=== PATIENT | male | born 1985 | race Two or more races ===

== ENCOUNTER 2023-10-12 19:31 | Inpatient (IN) | payer MEDICAID, OTHER ==
[~2023-10-12] VITALS: Ht 170.2 cm; Wt 62.6 kg
[2023-10-12] MEDS ORDERED: METOCLOPRAMIDE HCL 10 MG/2 ML VIAL ONE (21:10)
[2023-10-12] MEDS ORDERED: KETOROLAC TROMETHAMINE 15 MG/ML VIAL ONE (21:10)
[2023-10-12] MEDS: METOCLOPRAMIDE HCL 10 MG/2 ML VIAL IV ONE (21:16)
[2023-10-12] MEDS: KETOROLAC TROMETHAMINE 15 MG/ML VIAL IV ONE (21:17)
[2023-10-12 21:37] LABS: BASOPHILS # (AUTO) 0.1 K/uL (0.0-0.2); BASOPHILS % (AUTO) 0.9 % (0.0-2.0); EOSINOPHILS # (AUTO) 0.1 K/uL (0.0-0.7); EOSINOPHILS % (AUTO) 1.2 % (0.0-6.0); HEMATOCRIT 28 % (39-51); HEMOGLOBIN 8.8 g/dL (13.5-17.5); LYMPHOCYTES # (AUTO) 0.9 K/uL (0.8-4.8); LYMPHOCYTES % (AUTO) 8.6 % (20.0-44.0); MEAN CORPUSCULAR HEMOGLOBIN 27 PG (26.0-33.0); MEAN CORPUSCULAR HGB CONC 31 g/dl (31.0-36.0); MEAN CORPUSCULAR VOLUME 86 fL (80-96); MONOCYTES # (AUTO) 0.6 K/uL (0.1-1.30); MONOCYTES % (AUTO) 5.6 % (2.0-12.0); NEUTROPHILS # (AUTO) 9.1 K/uL (1.8-8.9); NEUTROPHILS % (AUTO) 83.7 % (43.0-81.0); PLATELET COUNT (AUTO) 353 K/uL (150-450); RED BLOOD CELL COUNT(AUTO) 3.27 MIL/uL (4.5-6.0); RED CELL DISTRIBUTION WIDTH 16.8 % (11.5-15.0); WHITE BLOOD COUNT (AUTO) 10.9 K/uL (4.3-11.0)
[2023-10-12 21:58] LABS: ALBUMIN 2.3 g/dL (3.4-5.0); BILIRUBIN,DIRECT 0.1 mg/dL (0.0-0.2); BILIRUBIN,TOTAL 0.5 mg/dL (0.2-1.0); CALCIUM, SERUM 8.5 mg/dL (8.5-10.1); TOTAL PROTEIN, SERUM 7.7 g/dL (6.4-8.2)
[2023-10-12 22:02] LABS: CREATININE 11.8 mg/dL (0.6-1.3); POTASSIUM 6.3 mmol/L (3.5-5.1)
[2023-10-12] MEDS: ALBUTEROL FS 2.5 MG/3 ML VIAL.NEB NEB ONE (22:52)
[2023-10-12] MEDS: INSULIN REGULAR, HUMAN 100 UNIT/ML 10 ML VIAL IV STA (22:54)
[2023-10-12] MEDS: SODIUM POLYSTYRENE SULFONATE 15 G/60 ML BOTTLE PO ONE (22:55)
[2023-10-12 23:04] VITALS: O2SAT 98
[2023-10-12] MEDS: DEXTROSE 50%-WATER 50 ML DISP.SYRIN IV ONE (23:09)
[2023-10-12 23:19] VITALS: O2SAT 98
[2023-10-12] MEDS ORDERED: ACETAMINOPHEN 325 MG TABLET PO PRN (23:30)
[2023-10-12] MEDS ORDERED: ONDANSETRON HCL/PF 4 MG/2 ML VIAL IVP PRN (23:30)
[2023-10-12] MEDS ORDERED: DEXTROSE 50%-WATER 50 ML DISP.SYRIN IV PRN (23:30)
[2023-10-12] MEDS: HALOPERIDOL LACTATE INJ 5 MG/ML VIAL IM ONE (23:33)
[2023-10-13] VITALS (41 sets, daily range): BP systolic 121–162; BP diastolic 83–138; TEMP 97.3–98.4; O2SAT 90–100
[2023-10-13 00:05] LABS: CALCIUM, SERUM 8.3 mg/dL (8.5-10.1); POTASSIUM 5.8 mmol/L (3.5-5.1)
[2023-10-13 00:09] LABS: CREATININE 12.5 mg/dL (0.6-1.3)
[2023-10-13 06:40] LABS: BASOPHILS # (AUTO) 0.1 K/uL (0.0-0.2); BASOPHILS % (AUTO) 1.3 % (0.0-2.0); EOSINOPHILS # (AUTO) 0.3 K/uL (0.0-0.7); EOSINOPHILS % (AUTO) 2.8 % (0.0-6.0); HEMATOCRIT 29 % (39-51); HEMOGLOBIN 9.1 g/dL (13.5-17.5); LYMPHOCYTES # (AUTO) 1.7 K/uL (0.8-4.8); LYMPHOCYTES % (AUTO) 16.6 % (20.0-44.0); MEAN CORPUSCULAR HEMOGLOBIN 27 PG (26.0-33.0); MEAN CORPUSCULAR HGB CONC 32 g/dl (31.0-36.0); MEAN CORPUSCULAR VOLUME 86 fL (80-96); MONOCYTES # (AUTO) 0.7 K/uL (0.1-1.30); MONOCYTES % (AUTO) 7.1 % (2.0-12.0); NEUTROPHILS # (AUTO) 7.4 K/uL (1.8-8.9); NEUTROPHILS % (AUTO) 72.2 % (43.0-81.0); PLATELET COUNT (AUTO) 372 K/uL (150-450); RED BLOOD CELL COUNT(AUTO) 3.33 MIL/uL (4.5-6.0); RED CELL DISTRIBUTION WIDTH 17.3 % (11.5-15.0); WHITE BLOOD COUNT (AUTO) 10.2 K/uL (4.3-11.0)
[2023-10-13 07:15] LABS: CALCIUM, SERUM 8.7 mg/dL (8.5-10.1); MAGNESIUM 2.6 mg/dL (1.8-2.4); POTASSIUM 5.8 mmol/L (3.5-5.1)
[2023-10-13 07:20] LABS: CREATININE 12.7 mg/dL (0.6-1.3)
[2023-10-13] MEDS: BLOOD SUGAR DIAGNOSTIC 1 EACH STRIP IN SCH (07:30)
[2023-10-13] MEDS: OLANZAPINE 10 MG VIAL IM ONE ×2 (09:12→12:25)
[2023-10-13] MEDS: INSULIN REGULAR, HUMAN 100 UNIT/ML 3 ML VIAL SQ PRN (09:18)
[2023-10-13] MEDS ORDERED: Z GUARD REMEDY 4 OZ OINT TP PRN (10:00)
[2023-10-13] MEDS: Z GUARD REMEDY 4 OZ OINT TP SCH (10:00)
[2023-10-13] MEDS: COD LIVER OIL/ZINC OXIDE 120 GM TUBE TP SCH (13:00)
[2023-10-13] MEDS: ARIPIPRAZOLE 5 MG TABLET PO SCH (14:40)
[2023-10-13] MEDS ORDERED: INSU100I34 SQ (15:19)
[2023-10-13] MEDS ORDERED: PRED5DRO17 LEFTEYE (15:19)
[2023-10-13] MEDS ORDERED: MOXI3DRO13 LEFTEYE (15:19)
[2023-10-13] MEDS ORDERED: ZINC57OI3 TP (15:19)
[2023-10-13] MEDS ORDERED: ELUX75TA PO (15:19)
[2023-10-13] MEDS ORDERED: ARIP20TA4 PO (15:19)
[2023-10-13] MEDS ORDERED: INSU100I26 SQ (15:19)
[2023-10-13] MEDS ORDERED: AMYL1CAP56 PO (15:19)
[2023-10-13] MEDS: OLANZAPINE 10 MG VIAL IM PRN (15:59)
[2023-10-13] MEDS: LORAZEPAM INJ 2 MG/ML VIAL IV PRN (17:10)
[2023-10-13] MEDS ORDERED: BENZTROPINE MESYLATE (2MG/2ML) 2 MG/2 ML AMPUL IM PRN (19:00)
[2023-10-13] MEDS ORDERED: HALOPERIDOL DECANOATE IM 100 MG/ML AMPUL IM PRN (19:00)
[2023-10-13] MEDS ORDERED: DIAZEPAM 5 MG/ML 2 ML DISP.SYRIN IM PRN (19:00)
[2023-10-13] MEDS: HALOPERIDOL LACTATE INJ 5 MG/ML VIAL IM PRN (22:09)
[2023-10-14] VITALS (47 sets, daily range): BP systolic 124–168; BP diastolic 84–123; TEMP 97.6–98.7; O2SAT 89–100
[2023-10-14 05:09] LABS: BASOPHILS # (AUTO) 0.1 K/uL (0.0-0.2); BASOPHILS % (AUTO) 1.2 % (0.0-2.0); EOSINOPHILS # (AUTO) 0.4 K/uL (0.0-0.7); EOSINOPHILS % (AUTO) 3.4 % (0.0-6.0); HEMATOCRIT 27 % (39-51); HEMOGLOBIN 8.5 g/dL (13.5-17.5); LYMPHOCYTES # (AUTO) 1.7 K/uL (0.8-4.8); LYMPHOCYTES % (AUTO) 14.8 % (20.0-44.0); MEAN CORPUSCULAR HEMOGLOBIN 27 PG (26.0-33.0); MEAN CORPUSCULAR HGB CONC 32 g/dl (31.0-36.0); MEAN CORPUSCULAR VOLUME 86 fL (80-96); MONOCYTES # (AUTO) 0.9 K/uL (0.1-1.30); NEUTROPHILS # (AUTO) 8.2 K/uL (1.8-8.9); NEUTROPHILS % (AUTO) 72.6 % (43.0-81.0); PLATELET COUNT (AUTO) 347 K/uL (150-450); RED CELL DISTRIBUTION WIDTH 16.5 % (11.5-15.0); WHITE BLOOD COUNT (AUTO) 11.3 K/uL (4.3-11.0)
[2023-10-14 05:31] LABS: CALCIUM, SERUM 7.7 mg/dL (8.5-10.1); POTASSIUM 5.3 mmol/L (3.5-5.1)
[2023-10-14 05:32] LABS: CREATININE 10.2 mg/dL (0.6-1.3)
[2023-10-14] MEDS: SEVELAMER CARBONATE 800 MG TABLET PO SCH (08:37)
[2023-10-14] MEDS: LORAZEPAM 1 MG TABLET PO SCH (13:51)
[2023-10-14] MEDS: ARIPIPRAZOLE 5 MG TABLET PO SCH (16:39)
[2023-10-14] MEDS ORDERED: MOXI3DRO13 OP (20:47)
[2023-10-14] MEDS: LORAZEPAM INJ 2 MG/ML VIAL IV PRN (22:08)
[2023-10-15] VITALS: BP 146/87; TEMP 98
[2023-10-15 04:00] VITALS: BP 147/94; TEMP 97.2; O2SAT 98
[2023-10-15 06:57] LABS: BASOPHILS # (AUTO) 0.1 K/uL (0.0-0.2); BASOPHILS % (AUTO) 0.7 % (0.0-2.0); EOSINOPHILS # (AUTO) 0.2 K/uL (0.0-0.7); HEMATOCRIT 25 % (39-51); LYMPHOCYTES # (AUTO) 1.6 K/uL (0.8-4.8); LYMPHOCYTES % (AUTO) 10.9 % (20.0-44.0); MEAN CORPUSCULAR HEMOGLOBIN 27 PG (26.0-33.0); MEAN CORPUSCULAR HGB CONC 32 g/dl (31.0-36.0); MEAN CORPUSCULAR VOLUME 85 fL (80-96); MONOCYTES % (AUTO) 6.7 % (2.0-12.0); NEUTROPHILS # (AUTO) 11.9 K/uL (1.8-8.9); NEUTROPHILS % (AUTO) 80.7 % (43.0-81.0); PLATELET COUNT (AUTO) 328 K/uL (150-450); RED BLOOD CELL COUNT(AUTO) 2.95 MIL/uL (4.5-6.0); RED CELL DISTRIBUTION WIDTH 16.1 % (11.5-15.0); WHITE BLOOD COUNT (AUTO) 14.8 K/uL (4.3-11.0)
[2023-10-15 07:12] LABS: CALCIUM, SERUM 7.6 mg/dL (8.5-10.1); POTASSIUM 5.4 mmol/L (3.5-5.1)
[2023-10-15 07:21] LABS: CREATININE 9.7 mg/dL (0.6-1.3)
[2023-10-15 08:00] VITALS: BP 143/92; TEMP 99; O2SAT 100
[2023-10-15 16:00] VITALS: BP 137/105; TEMP 98.1; O2SAT 100
[2023-10-15 20:00] VITALS: BP 129/111; TEMP 97.9; O2SAT 100
[2023-10-16 04:00] VITALS: BP 141/97; TEMP 97.9; O2SAT 100
[2023-10-16 08:00] VITALS: BP 141/103; TEMP 97.7; O2SAT 100
[2023-10-16] MEDS: CREON 12000 UNIT PO SCH (08:28)
[2023-10-16] MEDS: ELUXADOLINE 75 MG PO SCH (08:28)
[2023-10-16] MEDS: HALOPERIDOL 5 MG TABLET PO SCH (08:29)
[2023-10-16] MEDS: AMLODIPINE BESYLATE 5 MG TABLET PO SCH (09:21)
[2023-10-16] MEDS: LINAGLIPTIN 5 MG TABLET PO SCH (09:21)
[2023-10-16] MEDS: HEPARIN SODIUM, PORCINE 5000 UNITS/1 ML VIAL SQ SCH (09:22)
[2023-10-16] MEDS: EPOETIN ALFA (10,000 UNIT) 10,000 UNIT/ML VIAL SQ SCH (14:06)
[2023-10-16 16:00] VITALS: BP 140/98; TEMP 98.6; O2SAT 100
[2023-10-16 17:16] LABS: BASOPHILS # (AUTO) 0.1 K/uL (0.0-0.2); BASOPHILS % (AUTO) 1.1 % (0.0-2.0); EOSINOPHILS # (AUTO) 0.3 K/uL (0.0-0.7); EOSINOPHILS % (AUTO) 3.2 % (0.0-6.0); HEMATOCRIT 24 % (39-51); HEMOGLOBIN 7.7 g/dL (13.5-17.5); LYMPHOCYTES # (AUTO) 1.7 K/uL (0.8-4.8); MEAN CORPUSCULAR HEMOGLOBIN 28 PG (26.0-33.0); MEAN CORPUSCULAR HGB CONC 33 g/dl (31.0-36.0); MEAN CORPUSCULAR VOLUME 84 fL (80-96); MONOCYTES # (AUTO) 0.6 K/uL (0.1-1.30); MONOCYTES % (AUTO) 6.8 % (2.0-12.0); NEUTROPHILS # (AUTO) 6.4 K/uL (1.8-8.9); NEUTROPHILS % (AUTO) 69.9 % (43.0-81.0); PLATELET COUNT (AUTO) 296 K/uL (150-450); RED CELL DISTRIBUTION WIDTH 16.1 % (11.5-15.0); WHITE BLOOD COUNT (AUTO) 9.2 K/uL (4.3-11.0)
[2023-10-16 17:44] LABS: CALCIUM, SERUM 7.9 mg/dL (8.5-10.1)
[2023-10-16 17:46] LABS: CREATININE 9.8 mg/dL (0.6-1.3)
[2023-10-16 19:00] VITALS: BP 133/78; TEMP 97.7; O2SAT 100
[2023-10-16 20:00] VITALS: BP 133/78; TEMP 97.7; O2SAT 100
[2023-10-16 21:15] LABS: ANISOCYTOSIS 1+; EOSINOPHILS % (MANUAL) 4 % (0-4); LYMPHOCYTES % (MANUAL) 23 % (16-48); MONOCYTES % (MANUAL) 7 % (0-11.0); NEUTROPHILS % (MANUAL) 66 (42-76); OVALOCYTES 1+; PLATELET ESTIMATE ADEQUATE; ROULEAUX 1+
[2023-10-17] MEDS ORDERED: LORAZEPAM 0.5 MG TABLET PO SCH (09:00)
== END 2023-10-16 21:44 | disposition left against medical advice (07) | DRG 425 ==
LOC: ER 19:33 → TELE1 23:41 → ICU 10-13 15:45 → TELE1 10-14 18:02 → MEDSG1 10-15 09:52
PROVIDERS: ADMIT Nurse Practitioner Acute Care; ATTEND Internal Medicine
PROC: 5A1D70Z Performance of Urinary Filtration, Intermittent, Less than 6 Hours Per Day (ICD-10-PCS; principal; 2023-10-13)
DX: E87.70 Fluid overload, unspecified (principal); J81.0 Acute pulmonary edema; E44.0 Moderate protein-calorie malnutrition; I12.0 Hypertensive chronic kidney disease with stage 5 chronic kidney disease or end stage renal disease; E11.22 Type 2 diabetes mellitus with diabetic chronic kidney disease; E83.59 Other disorders of calcium metabolism; E88.09 Other disorders of plasma-protein metabolism, not elsewhere classified; D63.8 Anemia in other chronic diseases classified elsewhere; F29 Unspecified psychosis not due to a substance or known physiological condition; E87.5 Hyperkalemia; F20.9 Schizophrenia, unspecified; N18.6 End stage renal disease; M54.31 Sciatica, right side; E78.5 Hyperlipidemia, unspecified; Z99.2 Dependence on renal dialysis; Z91.158 Patient's noncompliance with renal dialysis for other reason; Z78.1 Physical restraint status; L98.419 Non-pressure chronic ulcer of buttock with unspecified severity; Z88.5 Allergy status to narcotic agent; Z88.8 Allergy status to other drugs, medicaments and biological substances; N25.0 Renal osteodystrophy
CPT/HCPCS: 36415; 71045-TC; 80048-TC; 80061-TC; 80076-TC; 82962-TC; 83690-TC; 83735-TC; 84100-TC; 85025-TC; 87081-TC; 90935-TC; 94799-TC; A6403; G0378; J0515; J0885; J1630; J1644; J1815; J1885; J2060; J2765; J3490; J7030

== ENCOUNTER 2023-11-03 18:24 | Emergency (ER) | payer MEDICAID ==
[~2023-11-03] VITALS: Ht 170.2 cm; Wt 62.6 kg
[~2023-11-03 18:24] MED LIST: AMYL1CAP56 PO; ARIP20TA4 PO; ELUX75TA PO; INSU100I26 SQ; INSU100I34 SQ; MOXI3DRO13 LEFTEYE; MOXI3DRO13 OP; PRED5DRO17 LEFTEYE; ZINC57OI3 TP
[2023-11-03 19:00] VITALS: BP 142/86; TEMP 98.4
[2023-11-03] MEDS ORDERED: ACETAMINOPHEN ES 500 MG TABLET ONE (20:17)
[2023-11-03] MEDS: ACETAMINOPHEN ES 500 MG TABLET PO ONE (20:23)
[2023-11-03 20:24] VITALS: O2SAT 97
== END 2023-11-03 20:25 | disposition home or self-care (01) ==
LOC: ER 18:27
DX: R51.9 Headache, unspecified (principal); I12.0 Hypertensive chronic kidney disease with stage 5 chronic kidney disease or end stage renal disease; E11.22 Type 2 diabetes mellitus with diabetic chronic kidney disease; N18.6 End stage renal disease; F20.9 Schizophrenia, unspecified; E78.5 Hyperlipidemia, unspecified; Z99.2 Dependence on renal dialysis; Z88.5 Allergy status to narcotic agent; Z88.8 Allergy status to other drugs, medicaments and biological substances

== ENCOUNTER 2024-02-02 07:56 | Emergency (ER) | payer MEDICAID, OTHER ==
[~2024-02-02] VITALS: Ht 167.6 cm; Wt 73.9 kg
[2024-02-02 08:32] LABS: BASOPHILS # (AUTO) 0.1 K/uL (0.0-0.2); BASOPHILS % (AUTO) 1.1 % (0.0-2.0); EOSINOPHILS # (AUTO) 0.4 K/uL (0.0-0.7); EOSINOPHILS % (AUTO) 4.9 % (0.0-6.0); HEMATOCRIT 26 % (39-51); HEMOGLOBIN 8.2 g/dL (13.5-17.5); LYMPHOCYTES # (AUTO) 1.4 K/uL (0.8-4.8); LYMPHOCYTES % (AUTO) 15.9 % (20.0-44.0); MEAN CORPUSCULAR HEMOGLOBIN 28 PG (26.0-33.0); MEAN CORPUSCULAR HGB CONC 32 g/dl (31.0-36.0); MEAN CORPUSCULAR VOLUME 87 fL (80-96); MONOCYTES # (AUTO) 0.6 K/uL (0.1-1.30); MONOCYTES % (AUTO) 6.1 % (2.0-12.0); NEUTROPHILS # (AUTO) 6.5 K/uL (1.8-8.9); PLATELET COUNT (AUTO) 308 K/uL (150-450); RED BLOOD CELL COUNT(AUTO) 2.94 MIL/uL (4.5-6.0); RED CELL DISTRIBUTION WIDTH 17.6 % (11.5-15.0); WHITE BLOOD COUNT (AUTO) 9.1 K/uL (4.3-11.0)
[2024-02-02 08:42] LABS: CALCIUM, SERUM 8.8 mg/dL (8.5-10.1); CARBON DIOXIDE 24 mmol/L (21-32); CHLORIDE 98 mmol/L (98-107); CREATININE 6.9 mg/dL (0.6-1.3); GLUCOSE 141 mg/dL (74-106); POTASSIUM 5.6 mmol/L (3.5-5.1); SODIUM SERUM 136 mmol/L (136-145)
[2024-02-02 08:46] LABS: UREA NITROGEN, BLOOD 87 mg/dL (7-18)
[2024-02-02] MEDS ORDERED: SODIUM BICARBONATE SYR 50 MEQ/50 ML DISP.SYRIN ONE (10:36)
[2024-02-02] MEDS ORDERED: SODIUM ZIRCONIUM CYCLOSILICATE 10 GM POWD.PACK ONE (10:36)
[2024-02-02] MEDS: SODIUM BICARBONATE SYR 50 MEQ/50 ML DISP.SYRIN IV ONE (10:43)
[2024-02-02] MEDS: SODIUM ZIRCONIUM CYCLOSILICATE 10 GM POWD.PACK PO ONE (10:46)
[2024-02-02] MEDS ORDERED: hydrALAZINE HCL IV 20 MG VIAL ONE (11:50)
[2024-02-02] MEDS: hydrALAZINE HCL IV 20 MG VIAL IV ONE (12:00)
[2024-02-02 15:21] VITALS: BP 167/114; TEMP 98; O2SAT 97
== END 2024-02-02 15:22 | disposition short-term general hospital (02) ==
LOC: ER 07:58
DX: E87.5 Hyperkalemia (principal); R60.0 Localized edema; R06.02 Shortness of breath; I12.0 Hypertensive chronic kidney disease with stage 5 chronic kidney disease or end stage renal disease; E11.22 Type 2 diabetes mellitus with diabetic chronic kidney disease; N18.6 End stage renal disease; E78.5 Hyperlipidemia, unspecified; F20.9 Schizophrenia, unspecified; Z87.39 Personal history of other diseases of the musculoskeletal system and connective tissue; Z88.5 Allergy status to narcotic agent; Z88.8 Allergy status to other drugs, medicaments and biological substances; Z99.2 Dependence on renal dialysis; Z20.822 Contact with and (suspected) exposure to COVID-19
CPT/HCPCS: 99285; 96374; 71045; 96375; 87426; 93005; 87804 ×2; 85025; 80048; 36415; 84484 ×2; 87081; J0360; J3490